=== PATIENT | female | born 1980 | race Caucasian/White ===

== ENCOUNTER 2016-10-26 12:12 | Emergency (ER) | payer SELFPAY ==
--- NOTE | 2016-10-26 12:32 | ED Physician Documentation ---
General Adult - HISTORIAN Historian: patient - HPI Chief Complaint: General Adult Onset: days ago (3 day) Timing: still present Quality: No rpecipitating factor noted. Location: left periorbital area Further Comments: yes (Patient developed a pimple tot he left lateral orbital rim. Has gotten bigger and strated to drain clear with mild blood at time. No fever or chills noted.) - ROS CONST: denies: fever, chills - PAST HX Past History: none Other History: none Surgeries/Procedures: (x 3) Allergies/Adverse Reactions: Allergies Allergy/AdvReac Type Severity Reaction Status Date / Time Penicillins Allergy Hives Verified 10/26/16 12:39 Home Medications: Ambulatory Orders Medication Instructions Recorded Doxycycline Monohydrate [Monodox] 100 mg PO BID #20 capsule 10/26/16 - SOCIAL HX Smoking History: less than 1 pack/day (3 cirgarettes a day) Alcohol Use: none Drug Use: none - FAMILY HX Family History: No - REVIEWED ASSESSMENTS Nursing Assessment Reviewed: Yes Vitals Reviewed: Yes Procedures Site: left lateral orbital rim/eyelid, about 1 1/2 inch of 1/4 packing placed, Blade Size: 11 I & D Procedure: Chlorhexidine Discharge Clincal Impression: Abscess Prescriptions: Doxycycline Monohydrate [Monodox] 100 mg PO BID #20 capsule Additional Instructions: Try to keep the packing in for 3 days. Change dressing over the wound every 24 hours and as needed. If the area or erythema appears to be getting lager to see your primary care provider or return to the ED. Take the doxycycline as directed twice a day. Home Medications: Ambulatory Orders Doxycycline Monohydrate [Monodox] 100 mg PO BID #20 capsule 10/26/16 Condition: Stable Disposition: 01 HOME, SELF-CARE Decision to Admit: NO Date of Decison to Admit: 10/26/16 Decision Time: 12:54
[2016-10-26] MEDS ORDERED: Lidocaine 1% 5ml(IM or SUTURE)(PAIN CLINIC) IJ ONE (12:36)
[2016-10-26 13:19] VITALS: BP 146/101
== END 2016-10-26 13:12 | disposition home or self-care (01) ==
LOC: ED 12:12
DX: H05.012 Cellulitis of left orbit (principal)
CPT/HCPCS: 87070; 87186; 99284